=== PATIENT | male | born 1990 | race Caucasian/White ===

== ENCOUNTER 2017-08-06 13:37 | Emergency (ER) | payer BC ==
[~2017-08-06] VITALS: Ht 188 cm; Wt 66.5 kg
[~2017-08-06 13:37] MED LIST: METH10TA PO
[2017-08-06 13:44] VITALS: TEMP 36.7; Ht 188 cm; Wt 66.5 kg
[2017-08-06] MEDS ORDERED: PENI-73 PO (13:59)
[2017-08-06] MEDS ORDERED: PENI500T2 PO (14:07)
[2017-08-06] MEDS ORDERED: NAPR-1169 PO (14:07)
[2017-08-06 14:13] VITALS: BP 150/91; PULSE 77; O2SAT 98
--- NOTE | 2017-08-07 06:39 | EMERGENCY ROOM VISIT NOTE ---
ED Visit Note First contact with patient: 13:48 Chief Complaint: Dental pain. History of Present Illness: Mr. Cardona is a 27-year-old white male who ambulates into the ED complaining of left mandibular dental pain. Historically patient reports he broke a tooth a couple weeks ago. He was scheduled to see a dentist for possible extraction and had to miss that appointment because of work. He reports 3 days ago he started having pain in tooth 20. He reports initially it was mild but has gradually increased in intensity. When he awoke this morning he noted facial swelling and increasing pain. Currently he describes his pain as a sharp and throbbing sensation. He rates his discomfort 7/10. His pain is radiating into the lower jaw. His pain worsens with chewing and palpation. He has not identified any alleviating factors related to the pain. He reports he has been using [id number] medication without relief of his discomfort. Additionally he reports he has had left over amoxicillin tablets from a previous dental infection that he started 1.5 days ago. He denies any associated symptoms including recent trauma, fevers, chills, sweats, skin eruptions, skin color changes, decreased appetite, vomiting, difficulty swallowing. Review of Systems: As noted above in history of present illness. Past Medical History: Opiate abuse. Current Medications: As noted above. Allergies to Medications: Patient denies. Social History: Patient is currently employed; he feels safe in his home environment; he admits to tobacco and alcohol use. Physical Examination: Vital Signs: Date Time Temp Pulse Resp B/P (MAP) Pulse Ox O2 Delivery O2 Flow Rate FiO2 08/06/17 13:44 36.7 77 16 150/91 98 Room Air GENERAL: 27-year-old male in mild to moderate distress due to pain, nontoxic- appearing, afebrile and hemodynamically stable. NEUROLOGICAL: Awake, alert and oriented to person, place and time. Answering questions appropriately and following commands. Normal gait. Good hand eye coordination. SKIN: Warm, dry and pink. No soft tissue eruptions or trauma noted. HEENT: Atraumatic and normocephalic. Mild facial swelling over the left mid mandible and in the submandibular area. This area is not erythematous or warm. Airway is patent. Uvula was midline and no abscesses are seen. No posterior pharyngeal erythema or edema. Tooth 20 does show a chip over the crown of the tooth and possible a cavity towards the gingiva. The tooth is tender to palpation. Surrounding gingiva is mildly erythematous and edematous. I was not able to palpate any abscess directly. No swelling or tenderness under the tongue. No cervical lymphadenopathy. ED Course: Patient is assessed as noted above. Patient's medication list was reviewed. I had a lengthy conversation with the patient based on his prior history of opiate abuse area he reports he has not been using for 3 years. I did check his name on the state database and no red flags were noted. Although I still was very concerned about prescribing narcotics for his pain. I did tell him about this. He felt he was over his opiate abuse and I informed him that I would not prescribe him narcotics today. Patient was educated about today's findings and instructed on his treatment plan ; he verbalizes understanding and agreement with this plan. Clinical Impression: Dental abscess. Disposition: Patient discharged home in stable condition; prior to departure he was reassessed and subjectively reported he was feeling the same. Plan: Patient was prescribed Naprosyn encouraged to alternate this every 6 hours with acetaminophen. Patient was encouraged to cover the tooth with dental wax and use a liquid or mechanical soft diet to avoid chewing. Patient was given a full prescription of Pen-Vee K 500 mg 4 times a day for 10 days. Patient was encouraged to follow-up with dentistry as soon as practical. Patient was encouraged return ED for worsening pain, worsening swelling, fevers or any new/concerning symptoms.
== END 2017-08-06 14:14 | disposition home or self-care (01) ==
LOC: C.EDB 13:38 → C.EDD 14:14
DX: K04.7 Periapical abscess without sinus (principal); Z86.59 Personal history of other mental and behavioral disorders; F17.200 Nicotine dependence, unspecified, uncomplicated; F10.99 Alcohol use, unspecified with unspecified alcohol-induced disorder

== ENCOUNTER 2017-11-06 01:44 | Emergency (ER) | payer BC ==
[~2017-11-06] VITALS: Ht 188 cm; Wt 65.8 kg
[2017-11-06] MEDS ORDERED: SODIUM CHLORIDE 0.9% 1000ML 1,000 ML IV STA ×2 (01:49→02:52)
[2017-11-06] MEDS ORDERED: ALBUT/IPRATROP 3MG/0.5MG NEB 3 ML VIAL INH STA (01:49)
[2017-11-06 01:50] VITALS: O2SAT 93
[2017-11-06 02:02] VITALS: TEMP 37; Ht 188 cm; Wt 65.8 kg
[2017-11-06 02:09] LABS: BASO % 0.1 %; BASO ABS # 0.02 K/uL (0-0.2); EOS % 0.3 %; EOS ABS # 0.07 K/uL (0-0.5); HEMATOCRIT 50.5 % (42-52); HEMOGLOBIN 17.8 g/dL (14.0-18.0); IG# 0.14 K/uL (0.00-0.02); LYMPH % 11.6 %; LYMPH ABS # 2.69 K/uL (1.2-3.4); MEAN CELL VOLUME 89.7 fL (80-100); MEAN CORPUSCULAR HEMOGLOBIN 31.6 pg (25-34); MEAN CORPUSCULAR HGB CONC 35.2 g/dl (32-36); MEAN PLATELET VOLUME 8.9 fL (7.4-10.4); MONO % 3.3 %; MONO ABS # 0.76 K/uL (0.11-0.59); NEUT % 84.1 %; NEUT ABS # 19.45 K/uL (1.4-6.5); PLATELET COUNT 278 K/uL (130-400); RED CELL DISTRIBUTION WIDTH CV 13.8 % (11.5-14.5); WHITE BLOOD COUNT 23.13 K/uL (4.8-10.8)
[2017-11-06 02:17] LABS: INR 1.1 (0.9-1.1)
[2017-11-06] MEDS ORDERED: ONDANSETRON INJ 2 MG/ML 2 ML VIAL ONE (02:36)
[2017-11-06 02:37] LABS: CALCIUM 9.4 mg/dl (8.5-10.1); CREATININE 1.06 mg/dl (0.60-1.40)
[2017-11-06 02:41] LABS: TOTAL PROTEIN 9.5 gm/dl (6.4-8.2)
[2017-11-06] MEDS ORDERED: PIPERACILLIN/TAZOBACTAM 4.5 GM/100ML D5W IV STA (02:42)
[2017-11-06] MEDS ORDERED: VANCOMYCIN INJ 1,300 MG in SODIUM CHLORIDE 0.9% 500ML 500 ML IV STA (02:42)
[2017-11-06] MEDS ORDERED: VANCOMYCIN CONSULT ACTIVE PRN (02:45)
[2017-11-06] MEDS ORDERED: OPTIRAY 320 IV PRN (03:00)
[2017-11-06] MEDS ORDERED: CLAR500T38 PO (05:08)
[2017-11-06] MEDS ORDERED: AGMXR/1000 PO (05:08)
--- NOTE | 2017-11-06 05:09 | EMERGENCY ROOM VISIT NOTE ---
History First contact with patient: 01:45 Chief Complaint: OVERDOSE (INTENTIONAL) Stated Complaint: HEROIN OVERDOSE History of Present Illness The patient is a 27 year old male who presents to the Emergency Room with complaints of heroin overdose just prior to arrival. The police gave him 2 of Narcan intranasally. Patient states 2 weeks ago he was sick for pneumonia. He took the Levaquin and states he still feels sick. Patient states he has been using heroin for the past month. He uses at least 2 packs a day. Patient states he has been having on-and-off problems with heroin addiction for the past several years. No other drug use per patient despite the fact he has tested positive for marijuana in the past. Patient claims of ongoing productive cough. No history of endocarditis. Patient denies chest pain, abdominal pain, fever, chills, vomiting, diarrhea, rashes. He states he feels short of breath with the cough. He still feels sick. Per EMS, the family kicked on the door and began CPR. They summoned EMS. The police gave Narcan and the patient woke up immediately Review of Systems An 10 system review of systems was completed with positives and pertinent negatives listed in the HPI. Past Medical/Surgical History Medical Problems: (1) Bronchitis (2) Drug user Social History Smoking Status: Current Every Day Smoker Alcohol Use: none Drug Use: heroin, marijuana Marital Status: single Housing Status: lives with family Occupation Status: employed Current/Historical Medications Scheduled Amoxicillin & Pot Clavulanate (Augmentin Xr), 2 GM PO BID Clarithromycin (Biaxin), 1 TAB PO BID Ondasetron Odt (Zofran Odt), 4 MG SL Q6H Physical Exam Vital Signs Date Time Temp Pulse Resp B/P (MAP) Pulse Ox O2 Delivery O2 Flow Rate FiO2 11/06/17 04:30 116 16 137/79 96 Room Air 11/06/17 03:30 108 18 126/73 96 Room Air 11/06/17 02:31 114 18 113/88 94 Room Air 11/06/17 02:02 37.0 122 16 104/90 93 Room Air 11/06/17 01:51 111 11/06/17 01:50 93 Room Air 11/06/17 01:50 93 Room Air Physical Exam VITALS: Vitals are noted on the nurse's note and reviewed by myself. Vital signs tachycardic. GENERAL: White male, in no acute distress, nondiaphoretic, well-developed well- nourished. SKIN: Multiple track danielle present without signs of infection to the upper extremities. The rest of the skin was without rashes, erythema, edema, or bruising. There is no tenting of the skin. Capillary reflex less than 2 seconds. No Osler nodes or Janeway lesions HEAD: Normocephalic atraumatic. EARS: External auditory canals clear, tympanic membranes pearly dominguez without erythema or effusion bilaterally. EYES: Pupils equal round and reactive to light and accommodation. Conjunctivae without injection, sclerae without icterus. Extraocular movements intact. NOSE: Patent, turbinates without inflammation or discharge. No sinus tenderness. MOUTH: Mucous membranes moist. Pharynx without erythema or exudate. Uvula midline. Airway patent. Tongue does not deviate. NECK: Supple without nuchal rigidity. No lymphadenopathy. No thyromegaly. Cervical spine is nontender. No JVD. HEART: Tachycardic rate and rhythm LUNGS: Mild diffuse end expiratory wheezes, without rales or rhonchi. No retractions or accessory muscle use. ABDOMEN: Positive bowel sounds x 4. Normal tympanic percussion. Soft, nontender, without masses or organomegaly. Syed sign negative. No guarding or rebound tenderness. No CVA tenderness MUSCULOSKELETAL: No muscle atrophy, erythema, or edema noted. NEURO: Patient was alert and oriented to person place and time. Normal sensation to light and sharp touch. No focal neurological deficits. Medical Decision & Procedures Laboratory Results 11/06/17 01:50 Red Blood Count 5.63, Mean Corpuscular Volume 89.7, Mean Corpuscular Hemoglobin 31.6, Mean Corpuscular Hemoglobin Concent 35.2, Mean Platelet Volume 8.9, Neutrophils (%) (Auto) 84.1, Lymphocytes (%) (Auto) 11.6, Monocytes (%) (Auto) 3.3, Eosinophils (%) (Auto) 0.3, Basophils (%) (Auto) 0.1, Neutrophils # (Auto) 19.45, Lymphocytes # (Auto) 2.69, Monocytes # (Auto) 0.76, Eosinophils # (Auto) 0.07, Basophils # (Auto) 0.02 11/06/17 01:50 Test 11/06/17 01:50 11/06/17 02:15 11/06/17 03:36 White Blood Count 23.13 K/uL (4.8-10.8) Red Blood Count 5.63 M/uL (4.7-6.1) Hemoglobin 17.8 g/dL (14.0-18.0) Hematocrit 50.5 % (42-52) Mean Corpuscular Volume 89.7 fL (80-100) Mean Corpuscular Hemoglobin 31.6 pg (25-34) Mean Corpuscular Hemoglobin Concent 35.2 g/dl (32-36) Platelet Count 278 K/uL (130-400) Mean Platelet Volume 8.9 fL (7.4-10.4) Neutrophils (%) (Auto) 84.1 % Lymphocytes (%) (Auto) 11.6 % Monocytes (%) (Auto) 3.3 % Eosinophils (%) (Auto) 0.3 % Basophils (%) (Auto) 0.1 % Neutrophils # (Auto) 19.45 K/uL (1.4-6.5) Lymphocytes # (Auto) 2.69 K/uL (1.2-3.4) Monocytes # (Auto) 0.76 K/uL (0.11-0.59) Eosinophils # (Auto) 0.07 K/uL (0-0.5) Basophils # (Auto) 0.02 K/uL (0-0.2) RDW Standard Deviation 45.0 fL (36.4-46.3) RDW Coefficient of Variation 13.8 % (11.5-14.5) Immature Granulocyte % (Auto) 0.6 % Immature Granulocyte # (Auto) 0.14 K/uL (0.00-0.02) Prothrombin Time 11.1 SECONDS (9.0-12.0) Prothromb Time International Ratio 1.1 (0.9-1.1) Activated Partial Thromboplast Time 26.0 SECONDS (21.0-31.0) Partial Thromboplastin Ratio 1.0 Anion Gap 6.0 mmol/L (3-11) Est Creatinine Clear Calc Drug Dose 99.1 ml/min Estimated GFR () 112.5 Estimated GFR (Non- 97.1 BUN/Creatinine Ratio 11.9 (10-20) Calcium Level 9.4 mg/dl (8.5-10.1) Total Bilirubin 0.5 mg/dl (0.2-1) Direct Bilirubin 0.1 mg/dl (0-0.2) Aspartate Amino Transf (AST/SGOT) 23 U/L (15-37) Alanine Aminotransferase (ALT/SGPT) 31 U/L (12-78) Alkaline Phosphatase 84 U/L (45-117) Total Creatine Kinase 77 U/L (39-308) Total Protein 9.5 gm/dl (6.4-8.2) Albumin 4.0 gm/dl (3.4-5.0) Lipase 112 U/L (73-393) Salicylates Level < 1.7 mg/dl (2.8-20) Acetaminophen Level < 2 ug/ml (10-30) Ethyl Alcohol mg/dL < 3.0 mg/dl (0-3) Bedside Lactic Acid Venous 1.34 mmol/L (0.90-1.70) Medications Administered Medications (Trade) Dose Ordered Sig/Marcella Route Start Time Stop Time Status Last Admin Dose Admin Sodium Chloride 1,000 ml @ 999 mls/hr Q1H1M STAT IV 11/06/17 01:49 11/06/17 02:49 DC 11/06/17 01:53 999 MLS/HR Albuterol/ Ipratropium (Duoneb) 3 ml NOW STAT INH 11/06/17 01:49 11/06/17 01:51 DC 11/06/17 01:53 3 ML Ondansetron HCl (Zofran Inj) 4 mg STK-MED ONCE .ROUTE 11/06/17 02:36 11/06/17 02:37 DC 11/06/17 02:38 4 MG Piperacillin Sod/ Tazobactam Sod (Zosyn Iv) 4.5 gm NOW STAT IV 11/06/17 02:42 11/06/17 02:45 DC 11/06/17 03:42 4.5 GM Vancomycin HCl 1300 mg/Sodium Chloride 526 ml @ 200 mls/hr ONE STAT IV 11/06/17 02:42 11/06/17 05:19 11/06/17 04:16 200 MLS/HR Sodium Chloride 1,000 ml @ 999 mls/hr Q1H1M STAT IV 11/06/17 02:52 11/06/17 03:52 DC 11/06/17 03:42 999 MLS/HR ED Course Prior records/ancillary studies reviewed. Triage Nursing notes reviewed. Additional history obtained from EMS The patient's history was concerning for altered mental status and probable overdose. Differential diagnosis: Etiologies such as toxicologic, infection, hypoglycemia, electrolyte abnormalities, cardiac sources, intracerebral event, neurologic, as well as others were entertained. Physical examination: The patient had a normal sensorium. No trauma noted. ER treatment provided: IV NSS 2 L bolus Zosyn, vancomycin On reassessment the patient was stable and improving. Diagnostic interpretation by me: The electrocardiogram was negative for pathologic change. There was no QRS widening or interval prolongation. Normal sinus, normal intervals, no acute ST- T wave changes, rate of 116. Impression sinus tachycardia interpreted by myself The labs revealed leukocytosis, negative lactic acid Blood cultures pending Imaging studies: Chest x-ray with persistent right lower and left lower lobe pneumonia as per my interpretation and per review from prior chest x-ray CTA concerning for bilateral pneumonia Consultation: I spoke to pharmacyKevin, and verifies the correct dosing of the Augmentin as this seemed like a high dose. This appears to be consistent with an overdose of heroin with persistent pneumonia. Patient is adamant he took the whole course of antibiotics. Patient was offered admission and declined. He was informed of the risks of sepsis and/or . He was offered information on rehab and also declined this. Patient was strongly encouraged to quit using illegal drugs. Patient was strongly encouraged to take antibiotics as directed and to follow-up family care in a few days here in the ER sooner for chest pain, difficulty breathing, fevers, confusion, worsening signs or symptoms or as needed. Patient was neurovascularly neurologically intact. He had a negative lactic acid. Blood cultures are pending. By the evaluation outlined above emergent etiologies such as hypoglycemia, electrolyte abnormalities, cardiac sources, intracerebral event, neurologic,as well as others were deemed relatively unlikely. The pt informed about the findings as listed above. All questions were answered and pleased with the treatment. Return instructions were outlined and the patient was discharged in stable condition. Outpatient prescription management: Augmentin, clarithromycin Referral: The patient was referred back to their primary care physician for follow-up in 2 to 3 days for a recheck of the current condition. Case reviewed with my attending The chart was completed utilizing [employer] voice recognition software. Grammatical errors, random word insertions, pronoun errors, and incomplete sentences are an occassional consequence of this system due to software limitations, ambient noise, and hardware issues. Any formal questions or concerns about the content, text, or information contained within the body of this dictation should be directly addressed to the physician retail store assistant for clarification. Medical Decision As above Medication Reconcilliation Current Medication List: was personally reviewed by me Blood Pressure Screening Patient's blood pressure: Normal blood pressure Impression Primary Impression: Heroin overdose Additional Impression: Pneumonia Departure Information Dispostion Home / Self-Care Condition FAIR Prescriptions Ondasetron Odt (ZOFRAN ODT) 4 Mg Tab 4 MG SL Q6H, #10 TAB Prov: Ludmila Feliciano PA-C 11/06/17 Amoxicillin & Pot Clavulanate (AUGMENTIN XR) 1 Tab Tab 2 GM PO BID for 10 Days, #40 TABS Prov: Ludmila Feliciano PA-C 11/06/17 Clarithromycin (BIAXIN) 500 Mg Tab 1 TAB PO BID for 10 Days, #20 TAB Prov: Ludmila Feliciano PA-C 11/06/17 Referrals No Doctor, Assigned (PCP) Patient Instructions My [facility] Additional Instructions Heroin overdose: Heroin / Opioid Overdose Discharge Instructions 1. What happened to me? You overdosed on an opioid - heroin, fentanyl, Percocet, or some other combination of drugs. Overdose is a dangerous and deadly consequence of heroin ( or any opioid) use. A large dose of an opioid depresses heart rate and breathing to such an extent that a user cannot survive without immediate medical help. 10% of those that survive an overdose are within one year ( because help didnt get there on time). 2. How was I saved? Someone called for help (or you were brought to the hospital in-time) and you were given the antidote, Narcan, that saved your life. Naloxone (e.g., Narcan) is a substance used to reverse the effects of opioids in an overdose. It is available as a nasal spray or as an autoinjector. It must be given within a short few minutes after an overdose or the user will . 3. What other risks do I face if I continue to use heroin/opioids? While intravenous (IV) injection is the most effective way to get an intense, nearly instantaneous quesada of euphoria from heroin, all types of opioid users - intravenous, intramuscular, subcutaneous, snorting or smoking - pay for that quesada by risking their health and livelihood in several ways: Exposure to blood-borne diseases (HIV, Hepatitis) and worsening withdrawal Damage to blood vessels and nerves, blood clots, heart valve infections, sepsis Abscess or cellulitis formation, gangrene Economic ruin, incarceration, loss of family and friends, stroke, brain damage , 4. Am I a bad person for using drugs? You are not a bad person for using drugs, but it is a serious problem that needs to be addressed. Addiction is not a character flaw, but a disease with both physical and mental symptoms. Abused substances cause physical changes to the brain, resulting in cravings, depression and other symptoms. Addiction is a disease that can affect anyone. 5. How can I get help? The path to recovery is different for every individual. Very few are able to quit without the proper medical assistance and community support networks. A good resource is ([facility] [employer] in [place], [place] Call ) 6. If I am not ready to stop using heroin/opioids, how can I make the process safer? Only smoke, snort or inject with others around who can monitor you and give the antidote Naloxone (Narcan), if needed. Since heroin has no quality control lab tech and is often mixed with other drugs such as fentanyl, always do a leopoldo snort/shot if the supply is new or quality is unknown. If injecting, always wash your hands and clean your work area prior to use with sanitizing wipes. Use only new, sterile needles and syringes. Avoid licking the needle tip or syringe. Information on the [place] [employer] Program can be obtained at https://nasen.org/directory/in/. Use alcohol swabs to sterilize the injection site before and after injection. Only use distilled, sterile water to dissolve the heroin. Any other water source (tap water, pond water, toilet water, etc.) or liquid will have impurities and if used may cause a serious infection. Do not draw water from someone elses source. Heat can be used to help dissolve the heroin/distilled water solution. No other liquid substance should be added to the injection. Use micron or cotton filters to help remove impurities in the substance solution. Never reuse the cotton filter as it can harbor bacteria and cause severe health consequences. Always dispose of the filter after a single use. Do not squeeze the filter to get out more heroin since it may only introduce harmful bacteria. After sucking the solution into the syringe through the filter, make sure no air bubbles are present in the syringe barrel before the plunger is released. Injecting air bubbles into the bloodstream can easily result in fatal injury. Get regular STD, hepatitis and HIV testing. If your injection site becomes red or tender, get it checked. 7. When should I return to the emergency department? If your symptoms are not improving in 24 hours or worsens you should seek immediate medical care. Other concerning symptoms include the development of opioid withdrawal (nausea, muscle cramping, depression, agitation, anxiety and/ or opiate cravings), fever, chest pain or shortness of breath. Pneumonia: DO NOT drive, drink alcohol, operate machinery, or perform dangerous activities today. You were given medications in the ER that can affect your ability to safely function or operate a vehicle. Amoxicillin Clavulanate (Augmentin) 1000mg: Take 2 pills twice daily for 10 days for your infection. All antibiotics can cause diarrhea. If this occurs and you feel worse or it does not resolve in 1-2 days follow up with your doctor or return to the Emergency Department as this could be signs of serious underlying problems. Any medication can cause an allergic reaction, stop the pills immediately and return to the ER for rash, hives, breathing difficulties, or swelling. Clarithromycin 500mg: Take one pill twice daily for 10 days for your infection. Take with food, but avoid dairy. Avoid prolonged sun exposure since this medication makes you temporarily more susceptible to sunburns. All antibiotics can cause diarrhea. If this occurs and you feel worse or it does not resolve in 1-2 days follow up with your doctor or return to the Emergency Department as this could be signs of serious underlying problems. Any medication can cause an allergic reaction, stop the pills immediately and return to the ER for rash, hives, breathing difficulties, or swelling. Albuterol Inhaler: Take 2 puffs four times daily for seven days, then as needed. Acetaminophen(Tylenol) may be used for fever or pain. Use 1000mg every six hours as needed. Avoid using more than 3000mg in a 24 hour period. AND/OR Ibuprofen(Motrin, Advil) may be used for fever or pain. Use 600mg every six hours as needed. Take with food. Avoid using more than 2400mg in a 24 hour period. Do not use 2400mg per day for more than three consecutive days without physician direction. Prolonged inappropriate use can lead to stomach upset or ulcers. Controlling your fever with Tylenol and Ibuprofen as above will make you feel better. Rest and drink plenty of fluids. Avoid strenuous activity until your symptoms resolve and your breathing returns to normal. Continue current medications. Return to the ER for chest pain, difficulty breathing, persistent fevers, vomiting, worsening of your condition, or as needed. Follow-up with family care in 2-3 days. Problem Qualifiers Primary Impression: Heroin overdose Encounter type: initial encounter Injury intent: accidental or unintentional Qualified Codes: T40.1X1A - Poisoning by heroin, accidental ( unintentional), initial encounter
[2017-11-06] MEDS ORDERED: ONDA4TAB10 SL (05:11)
--- NOTE | 2017-11-06 06:32 | DIAGNOSTIC IMAGING REPORT ---
CT ANGIOGRAM OF THE CHEST CLINICAL HISTORY: Atypical chest pain. Cough. COMPARISON STUDY: Chest x-ray dated 11/06/2017 TECHNIQUE: Following the IV administration of 92 mL of [id number]-320, CT angiogram of the thorax was performed from the thoracic inlet to the lung bases utilizing the pulmonary embolus protocol. Images are reviewed in the axial, sagittal, and coronal planes. IV contrast was administered without complication. MIP imaging was performed. A dose lowering technique was utilized adhering to the principles of ALARA. CT DOSE: 267.72 mGy.cm FINDINGS: No pathologically enlarged axillary mediastinal or hilar lymph nodes were visualized. There was no evidence of thoracic aortic dilatation. There were no pulmonary artery filling defects to indicate acute pulmonary embolism. No pleural effusions are visualized. There are bilateral lower lobe airspace opacities suspicious for pneumonia. IMPRESSION: 1. No evidence of acute pulmonary embolism 2. Bilateral lower lobe airspace opacities suspicious for pneumonia. Electronically signed by: Chandler Doe M.D. 11/06/2017 6:30 AM Dictated Date/Time: 11/06/2017 6:28 AM
[2017-11-06] MEDS ORDERED: ALBUTEROL HFA 8 GM INHALER INH ONE (07:04)
[2017-11-06] MEDS ORDERED: ALBUTEROL HFA 8 GM INHALER INH STA (07:07)
--- NOTE | 2017-11-06 07:07 | DIAGNOSTIC IMAGING REPORT ---
CHEST 2 VIEWS ROUTINE CLINICAL HISTORY: 27 years-old Male presenting with cough, OD, recent PNA. TECHNIQUE: PA and lateral views of the chest were obtained. COMPARISON: 10/27/[address] performed subsequently the same day. FINDINGS: Cardiomediastinal silhouette normal. Bibasilar opacities best visualized on subsequent CT. No pleural effusion or pneumothorax. Osseous structures normal. Upper abdomen normal. IMPRESSION: 1. Bibasilar infiltrates best visualized on subsequent CT and consistent with pneumonia or aspiration. Electronically signed by: Minh Gooden M.D. 11/06/2017 7:05 AM Dictated Date/Time: 11/06/2017 7:04 AM
[2017-11-06 07:09] VITALS: BP 117/63; PULSE 106; O2SAT 95
== END 2017-11-06 07:11 | disposition home or self-care (01) ==
LOC: EDBD 01:44 → C.EDA 01:46
DX: T40.1X1A Poisoning by heroin, accidental (unintentional), initial encounter (principal); J18.9 Pneumonia, unspecified organism; Z79.899 Other long term (current) drug therapy; Z87.09 Personal history of other diseases of the respiratory system; F17.200 Nicotine dependence, unspecified, uncomplicated